=== PATIENT | female | born 1985 | race Caucasian/White ===

== ENCOUNTER 2017-09-24 19:21 | Emergency (ER) | payer OTHER ==
[~2017-09-24] VITALS: Ht 162.6 cm; Wt 81.2 kg
[~2017-09-24 19:21] MED LIST: AEROECLIPSE II1 EACH MC; ALBUTEROL2.5 MG/0.1 INH; ALBUTEROL2.5 MG/0.5 INH; BENTYL20 MG PO; BIRTH CONTROL PO; CIPRO500 MG PO; FLAGYL500 MG PO; HYDROCODONE-AP1 EAC6 PO; LEVOTHYROXIN0.025 MG PO; MEDROLDOSEPACK PO; METFORMIN HCL500 MG PO; NAPROSYN500 MG PO; NORCO 5-325 TA1 EAC1 PO; PHENERGAN 25 MG25 M1 PO; ZOFRAN 4 MG ORAL4 MG PO; ZOFRAN ODT4 MG DISSOLVE; ZOFRAN ODT4 MG PO
[2017-09-24 20:00] LABS: URINE BILIRUBIN NEGATIVE (Negative); URINE BLOOD 1+ (Negative); URINE COLOR YELLOW; URINE GLUCOSE-RANDOM NEGATIVE (Negative); URINE KETONES NEGATIVE (Negative); URINE LEUKOCYTES-REFLEX TRACE (Negative); URINE NITRITE-REFLEX NEGATIVE (Negative); URINE PROTEIN NEGATIVE (Negative); URINE SPECIFIC GRAVITY >= 1.030 (1.005-1.030); URINE UROBILINOGEN 0.2 E.U./dl (0.2-1.0)
[2017-09-24 20:02] LABS: URINE CLARITY HAZY
[2017-09-24 20:20] LABS: SQUAMOUS >10 Many /LPF (0-3)
[2017-09-24 20:21] LABS: ABSOLUTE LYMPHOCYTES 3.1 thou/uL (0.8-5.3); ABSOLUTE MONOCYTES 0.8 thou/uL (0.0-1.2); ABSOLUTE NEUTROPHILS 6.7 thou/uL (1.6-8.1); BASOPHILS 0.4 %; EOSINOPHILS 0.4 %; HEMATOCRIT 39.5 % (37.0-47.0); HEMOGLOBIN 13.3 gm/dL (12.0-15.0); LYMPHOCYTES 29.3 %; MCH 28.3 pg (26.0-34.0); MCHC 33.7 g/dL (28.0-37.0); MONOCYTES 7.1 %; MPV 9.1 fl. (7.2-11.1); NUCLEATED RBCS 0 /100WBC; PLATELET COUNT* 289 thou/uL (150-400); POLYS 62.8 %; RDW-CV 13.5 % (10.5-14.5); WBC 10.7 thou/uL (4.0-11.0)
[2017-09-24 20:21] LABS: CALCIUM OXALATE 0-3 Few /LPF (None Seen); CASTS None Seen /LPF (None Seen); MUCUS 0-3 Light strn/LPF (None Seen); URINE RBC 0-2 Rare /HPF (0-2); URINE WBC-REFLEX 0-5 Rare /HPF (0-5)
[2017-09-24 20:31] LABS: CALCIUM 9.5 mg/dL (8.5-10.1); CREATININE 0.9 mg/dL (0.6-1.3); POTASSIUM 3.3 mmol/L (3.5-5.1)
[2017-09-24 20:35] LABS: ALBUMIN 3.6 g/dL (3.4-5.0); TOTAL BILIRUBIN 0.2 mg/dL (<0.1-1.0); TOTAL PROTEIN 7.7 g/dL (6.4-8.2)
[2017-09-24] MEDS ORDERED: ZOFRAN ODT4 MG PO (22:26)
[2017-09-24] MEDS ORDERED: HYDROCODONE-AP1 EAC6 PO (22:26)
[2017-09-24] MEDS ORDERED: TORADOL 10 MG T10 MG PO (22:30)
[2017-09-24 22:45] VITALS: BP 118/72
== END 2017-09-24 22:45 | disposition home or self-care (01) ==
LOC: M.ERS 19:21
PROVIDERS: Nurse Practitioner Family
DX: R10.31 Right lower quadrant pain (principal); F10.99 Alcohol use, unspecified with unspecified alcohol-induced disorder; E03.9 Hypothyroidism, unspecified; J45.909 Unspecified asthma, uncomplicated; Z88.2 Allergy status to sulfonamides; Z90.49 Acquired absence of other specified parts of digestive tract

== ENCOUNTER 2017-09-28 14:40 | Inpatient (IN) | payer OTHER ==
[~2017-09-28] VITALS: Ht 162.6 cm; Wt 81.2 kg
--- NOTE | ~2017-09-28 | PROC ---
[facility] [address] [place] [address] PROCEDURE REPORT Name: TK MENSAH Room: [address] IN M.R.#: [id number] Admission: 09/28/17 Attend Phys: Debbi Foley MD Discharge: 10/01/17 Date of : 85 Report #: [id number] THIS REPORT FOR: //name// For GI report, please see Provation report in Perceptive 7 content. By: [id number] Records Staff YULIYA /COLLETTE
[~2017-09-28 14:40] MED LIST changes: +TORADOL 10 MG T10 MG PO
[2017-09-28 14:50] VITALS: BP 137/95
[2017-09-28] MEDS ORDERED: MOBIC15 MG PO (14:57)
[2017-09-28 15:37] LABS: URINE BILIRUBIN NEGATIVE (Negative); URINE BLOOD 1+ (Negative); URINE CLARITY CLEAR; URINE COLOR YELLOW; URINE GLUCOSE-RANDOM NEGATIVE (Negative); URINE KETONES NEGATIVE (Negative); URINE LEUKOCYTES-REFLEX NEGATIVE (Negative); URINE NITRITE-REFLEX NEGATIVE (Negative); URINE PROTEIN NEGATIVE (Negative); URINE SPECIFIC GRAVITY <= 1.005 (1.005-1.030); URINE UROBILINOGEN 0.2 E.U./dl (0.2-1.0)
[2017-09-28 15:38] LABS: ABSOLUTE BASOPHILS 0.1 thou/uL (0.0-0.2); ABSOLUTE EOSINOPHILS 0.1 thou/uL (0.0-0.7); ABSOLUTE MONOCYTES 0.8 thou/uL (0.0-1.2); ABSOLUTE NEUTROPHILS 7.3 thou/uL (1.6-8.1); BASOPHILS 0.5 %; HEMATOCRIT 39.8 % (37.0-47.0); HEMOGLOBIN 13.4 gm/dL (12.0-15.0); LYMPHOCYTES 26.8 %; MCH 28.5 pg (26.0-34.0); MCHC 33.6 g/dL (28.0-37.0); MCV 84.8 fL (80.0-100.0); MONOCYTES 6.7 %; MPV 9.5 fl. (7.2-11.1); NUCLEATED RBCS 0 /100WBC; PLATELET COUNT* 331 thou/uL (150-400); RBC 4.69 mil/uL (4.20-5.00); RDW-CV 13.5 % (10.5-14.5); WBC 11.3 thou/uL (4.0-11.0)
[2017-09-28 15:48] LABS: CRYSTALS None Seen /LPF (None Seen); MUCUS None Seen strn/LPF (None Seen); SQUAMOUS >10 Many /LPF (0-3)
[2017-09-28 15:49] LABS: CASTS None Seen /LPF (None Seen); URINE RBC 0-2 Rare /HPF (0-2); URINE WBC-REFLEX 0-5 Rare /HPF (0-5)
[2017-09-28 15:49] LABS: CALCIUM 8.7 mg/dL (8.5-10.1); CREATININE 0.9 mg/dL (0.6-1.3); POTASSIUM 3.2 mmol/L (3.5-5.1)
[2017-09-28 15:50] LABS: ALBUMIN 3.9 g/dL (3.4-5.0); TOTAL BILIRUBIN 0.2 mg/dL (<0.1-1.0); TOTAL PROTEIN 8.2 g/dL (6.4-8.2)
[2017-09-28 16:30] VITALS: BP 128/90; BP 131/92
[2017-09-28 20:30] VITALS: BP 120/70
[2017-09-29 00:04] VITALS: BP 108/61
[2017-09-29 04:02] LABS: HEMATOCRIT 31.7 % (37.0-47.0); MCHC 33.9 g/dL (28.0-37.0); MCV 85.4 fL (80.0-100.0); MPV 9.6 fl. (7.2-11.1); RBC 3.71 mil/uL (4.20-5.00); RDW-CV 13.5 % (10.5-14.5); WBC 7.8 thou/uL (4.0-11.0)
[2017-09-29 04:05] LABS: HEMOGLOBIN 10.8 gm/dL (12.0-15.0)
[2017-09-29 04:34] LABS: ALBUMIN 2.8 g/dL (3.4-5.0); CALCIUM 7.9 mg/dL (8.5-10.1); CREATININE 0.8 mg/dL (0.6-1.3); TOTAL BILIRUBIN 0.3 mg/dL (<0.1-1.0); TOTAL PROTEIN 5.7 g/dL (6.4-8.2)
[2017-09-29 08:15] VITALS: BP 119/79
[2017-09-29 09:21] VITALS: BP 108/61
[2017-09-29 16:00] VITALS: BP 113/71
[2017-09-29 21:45] VITALS: BP 121/75
[2017-09-30 08:00] VITALS: BP 115/70
[2017-09-30 15:30] VITALS: BP 113/73
[2017-09-30 20:00] VITALS: BP 116/76
[2017-10-01 00:33] VITALS: BP 116/74
[2017-10-01 08:08] VITALS: BP 125/82
[2017-10-01] MEDS ORDERED: PANTOPRAZOLE SO40 M1 PO (08:46)
[2017-10-01] MEDS ORDERED: HYDROCODON-ACE1 EAC7 PO (08:46)
[2017-10-01] MEDS ORDERED: SCOPOLAMINE1 EACH TRANSDERM (08:46)
[2017-10-01] MEDS ORDERED: COLESTID1 GM PO (08:46)
[2017-10-01] MEDS ORDERED: ZOFRAN ODT4 MG PO (08:47)
[2017-10-01 10:58] VITALS: BP 125/82
[2017-10-01 11:03] VITALS: BP 125/82
[2017-10-01] MEDS ORDERED: LEVAQUIN 250 M250 MG PO (11:10)
[2017-10-01 11:26] VITALS: BP 125/82
--- NOTE | 2017-10-02 11:21 | S ---
[place] [address] SURGICAL PATH RPT PROCEDURE Name: RODRICKALEXA R Room: [address] IN M.R.#: [id number] Admission: 09/28/17 Date of : 85 Discharge: 10/01/17 Report #: [id number] Path Case #: [id number] PATHOLOGY REPORT COLLECTION DATE: 09/29/2017 RECEIVED DATE: 10/01/2017 SUBMITTING PHYS: Dr. Fidelina Genao OTHER PHYS: Dr. Debbi Desir SPECIMEN(S) RECEIVED: A.Duodenal biopsy * * * * * * * * * * * * FINAL DIAGNOSIS: Duodenum, "duodenal biopsy": - No obvious diagnostic changes. - There is no evidence of acute cryptitis, granulomas, adenomatous change, sprue-like changes or malignancy. (SHA:mgr; 10/02/2017) PATHOLOGIST: Lv Carson M.D. REPORT ELECTRONICALLY SIGNED BY: Lv Carson M.D. DATE/TIME: 10/02/2017 11:20 * * * * * * * * * * * * GROSS PATHOLOGY: Received in formalin labeled "Alexa Thomas duodenal BX" and consists of 2 juárez mucosal biopsies each averaging 0.3 cm. There are entirely submitted as A1. (MARGO; 10/01/2017) CLINICAL HISTORY: Rule out mild duodenitis INITIAL CPT CODE(S): A; 32470 Professional services performed by [facility] at [facility], [address] [place] [address]. Technical services performed by [facility] at [address] [place] [address], [address], [place], [place] [address]. [facility] [address] [address] [place] [address] SURGICAL PATH RPT PROCEDURE Name: ALEXA THOMAS Room: [address] IN M.R.#: [id number] Admission: 09/28/17 Date of : 85 Discharge: 10/01/17 Report #: [id number] Path Case #: [id number] [place] [address] PHONE: [phone] DIRECTOR: Shade Chandra M.D. * * * END OF REPORT * * *
--- NOTE | 2017-10-15 15:05 | CON ---
[address] [address] CONSULTATION Name: TK MENSAH Room: [address] IN M.R.#: [id number] Admission: 09/28/17 Attend Phys: Debbi Foley MD Discharge: 10/01/17 Date of : 85 Report #: [id number] THIS REPORT FOR: //name// CC: Dr. Debbi Desir MD DATE OF SERVICE: 09/29/2017 REQUESTING PHYSICIAN: Dr. Debbi Foley. HISTORY OF PRESENT ILLNESS: This is a 31-year-old female with history of gallbladder disease, status post cholecystectomy 2 years ago. The patient reports that she has had intermittent right upper quadrant pain, which mimics her gallbladder disease. She has had a CT and MRCP, which were negative for any evidence of choledocholithiasis or intra or extrahepatic ductal dilatation. The patient also complains of nausea, but no vomiting. The pain is mainly in the right upper quadrant pain and radiates to the back. She denies any lower GI symptoms as she denies diarrhea, constipation, hematochezia or melena. PAST MEDICAL HISTORY: Significant for history of gallbladder disease, status post cholecystectomy 2 years ago, bronchitis, asthma, heart murmur, history of arthroscopy, ex lap, shoulder surgery, and hyperthyroidism: ALLERGIES: Significant to SULFA. MEDICATIONS: Please refer to hospital MAR. SOCIAL HISTORY: The patient is a nurse. She denies tobacco or alcohol use. FAMILY HISTORY: Noncontributory. PHYSICAL EXAMINATION: VITAL SIGNS: Reveals blood pressure of 108/61, respiration 18, pulse 84, temperature 97. LUNGS: Clear. CARDIOVASCULAR: Regular. ABDOMEN: Soft, tender to palpation in the right upper quadrant. Bowel sounds are positive. NEUROLOGIC: The patient is alert, oriented x 3. LABORATORY DATA: Reveal sodium of 145, potassium 4.0, BUN is 7, creatinine 0.8, glucose 78, AST is 12, ALT 28, alkaline phosphatase 42, calcium 7.9. Lipase 105. WBC is 7.8 with hemoglobin of 10.8 and [place] [id number] CONSULTATION Name: TK MENSAH Maria Luisa Room: [address] IN [facility].#: [id number] Admission: 09/28/17 Attend Phys: Debbi Foley MD Discharge: 10/01/17 Date of : 85 Report #: [id number] IMAGING: CT and MRCP were performed and as discussed above. ASSESSMENT AND PLAN: The patient with right upper quadrant pain and dyspepsia, who has had gallbladder surgery 2 years ago. The MRCP is negative for any evidence of choledocholithiasis. 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 <ELECTRONICALLY SIGNED> By: Fidelina Genao MD 10/15/17 1505 [id number] Genao MD /juan manuel
== END 2017-10-01 11:28 | disposition home or self-care (01) | DRG 384 ==
LOC: M.ERS 14:40 → M.TBA-ER 15:25 → M.ORTHSURG 15:25
PROVIDERS: Physician Assistant; ADMIT Internal Medicine
PROC: 0DB98ZX Excision of Duodenum, Via Natural or Artificial Opening Endoscopic, Diagnostic (ICD-10-PCS; principal; 2017-09-29)
DX: K26.9 Duodenal ulcer, unspecified as acute or chronic, without hemorrhage or perforation (principal); E03.9 Hypothyroidism, unspecified; J45.909 Unspecified asthma, uncomplicated; E21.3 Hyperparathyroidism, unspecified; E28.2 Polycystic ovarian syndrome; K44.9 Diaphragmatic hernia without obstruction or gangrene; Z90.49 Acquired absence of other specified parts of digestive tract; Z79.899 Other long term (current) drug therapy; Z88.2 Allergy status to sulfonamides

== ENCOUNTER → 2017-10-29 | Outpatient (CLI) | payer OTHER ==
[~2017-10-29] MED LIST changes: +COLESTID1 GM PO; +HYDROCODON-ACE1 EAC7 PO; +LEVAQUIN 250 M250 MG PO; +MOBIC15 MG PO; +PANTOPRAZOLE SO40 M1 PO; +SCOPOLAMINE1 EACH TRANSDERM; +SYNTHROID25 MC1 PO
[2017-10-29 16:31] LABS: MCH 28.4 pg (26.0-34.0); MCHC 33.2 g/dL (28.0-37.0); MCV 85.3 fL (80.0-100.0); MPV 9.6 fl. (7.2-11.1); RBC 4.92 mil/uL (4.20-5.00); RDW-CV 13.7 % (10.5-14.5); WBC 9.7 thou/uL (4.0-11.0)
[2017-10-29 16:52] LABS: ALBUMIN 3.8 g/dL (3.4-5.0); CALCIUM 9.2 mg/dL (8.5-10.1); CREATININE 0.9 mg/dL (0.6-1.3); POTASSIUM 3.8 mmol/L (3.5-5.1); TOTAL BILIRUBIN 0.2 mg/dL (<0.1-1.0); TOTAL PROTEIN 7.8 g/dL (6.4-8.2)
== END ==
LOC: M.LAB 16:14
PROVIDERS: Family Medicine
DX: K83.8 Other specified diseases of biliary tract (principal); R94.5 Abnormal results of liver function studies

== ENCOUNTER 2017-11-06 14:22 | Inpatient (IN) | payer OTHER ==
[~2017-11-06] VITALS: Ht 162.6 cm; Wt 78.5 kg
--- NOTE | ~2017-11-06 | PROC ---
[address] [address] PROCEDURE REPORT Name: TK MENSAH Room: [address] IN M.R.#: [id number] Admission: 11/06/17 Attend Phys: Trinh Nixon Discharge: Date of : 85 Report #: [id number] THIS REPORT FOR: //name// See Provation report in Perceptive 7 content. By: [id number] Records Staff [facility] /COLLETTE
[~2017-11-06 14:22] MED LIST changes: -SYNTHROID25 MC1 PO
[2017-11-06 14:36] VITALS: BP 136/89
[2017-11-06 14:42] LABS: URINE BILIRUBIN NEGATIVE (Negative); URINE BLOOD TRACE (Negative); URINE CLARITY CLEAR; URINE COLOR YELLOW; URINE GLUCOSE-RANDOM NEGATIVE (Negative); URINE KETONES NEGATIVE (Negative); URINE LEUKOCYTES-REFLEX NEGATIVE (Negative); URINE NITRITE-REFLEX NEGATIVE (Negative); URINE PROTEIN TRACE (Negative); URINE UROBILINOGEN 0.2 E.U./dl (0.2-1.0)
[2017-11-06 14:51] LABS: ABSOLUTE LYMPHOCYTES 2.6 thou/uL (0.8-5.3); ABSOLUTE MONOCYTES 0.7 thou/uL (0.0-1.2); ABSOLUTE NEUTROPHILS 7.4 thou/uL (1.6-8.1); BASOPHILS 0.2 %; EOSINOPHILS 0.3 %; HEMATOCRIT 40.6 % (37.0-47.0); HEMOGLOBIN 13.5 gm/dL (12.0-15.0); LYMPHOCYTES 24.4 %; MCH 28.1 pg (26.0-34.0); MCHC 33.2 g/dL (28.0-37.0); MCV 84.7 fL (80.0-100.0); MONOCYTES 6.2 %; MPV 9.4 fl. (7.2-11.1); NUCLEATED RBCS 0 /100WBC; PLATELET COUNT* 303 thou/uL (150-400); POLYS 68.9 %; RBC 4.79 mil/uL (4.20-5.00); RDW-CV 13.5 % (10.5-14.5); WBC 10.7 thou/uL (4.0-11.0)
[2017-11-06 15:01] LABS: CALCIUM 9.3 mg/dL (8.5-10.1); POTASSIUM 3.4 mmol/L (3.5-5.1)
[2017-11-06] MEDS ORDERED: SYNTHROID25 MC1 PO (15:02)
[2017-11-06 15:05] LABS: ALBUMIN 3.7 g/dL (3.4-5.0); TOTAL BILIRUBIN 0.3 mg/dL (<0.1-1.0); TOTAL PROTEIN 7.9 g/dL (6.4-8.2)
[2017-11-06 15:48] VITALS: BP 123/85
[2017-11-06 16:09] VITALS: BP 118/62
--- NOTE | 2017-11-06 16:18 | NUR ---
PATIENT ADMITTED FROM ER TO ROOM 105. ALERT AND ORIENTED. REPORTS RUQ PAIN X 6 WEEKS. PATIENT STATES SHE IS BEING CARED FOR BY DR. HICKEY BUT HAS NOT BEEN ABLE TO FOLLOW UP WITH HIM SINCE LAST ADMISSION. PATIENT STATES DIET IS POOR AND SHE IS ONLY TOLERATING SOFTER FOODS. IVF INFUSING ORDERED. ADMISSION HISTORY AND ASSESSMENT CHARTED. DR. HICKEY CONSULTED. ORIENTED TO ROOM AND BED CONTROLS. MOM AT BEDSIDE. WILL CONTINUE TO MONITOR.
[2017-11-06 20:00] VITALS: BP 137/88
[2017-11-07 00:44] VITALS: BP 112/69
--- NOTE | 2017-11-07 04:42 | NUR ---
PATIENT REMAINS ALERT AND ORIENTED X4. VITAL SIGNS STABLE ON ROOM AIR. REPORTS PAIN IN RIGHT UPPER QUADRANT. ALSO REPORTS NAUSEA THROUGHOUT SHIFT. PAIN AND NAUSEA MANAGED WITH IV MEDICATION PER ORDER. IV PATENT IN THE RIGHT AC INFUSING AT 100 ML/HR. MAINTAINED NPO STATUS STARTING AT MIDNIGHT. TRANSFERS AD OLEG TO THE RESTROOM. HOURLY ROUNDING COMPLETE. CALL LIGHT WITHIN REACH. NURSING WILL CONTINUE TO MONITOR.
[2017-11-07 05:13] LABS: HEMATOCRIT 31.5 % (37.0-47.0); MCH 28.7 pg (26.0-34.0); MCHC 34.1 g/dL (28.0-37.0); MCV 84.4 fL (80.0-100.0); MPV 9.9 fl. (7.2-11.1); RBC 3.73 mil/uL (4.20-5.00); RDW-CV 13.7 % (10.5-14.5); WBC 7.3 thou/uL (4.0-11.0)
[2017-11-07 05:37] LABS: HEMOGLOBIN 10.7 gm/dL (12.0-15.0)
[2017-11-07 05:44] LABS: ALBUMIN 2.8 g/dL (3.4-5.0); CALCIUM 8.4 mg/dL (8.5-10.1); CREATININE 0.9 mg/dL (0.6-1.3); POTASSIUM 4.2 mmol/L (3.5-5.1); TOTAL BILIRUBIN 0.2 mg/dL (<0.1-1.0); TOTAL PROTEIN 5.8 g/dL (6.4-8.2)
[2017-11-07 07:51] VITALS: BP 112/76
[2017-11-07 10:57] VITALS: BP 113/70
[2017-11-07 15:06] VITALS: BP 110/68
--- NOTE | 2017-11-07 18:08 | NUR ---
ASSUMED CARE OF PATIENT AFTER MORNING REPORT. ALERT AND ORIENTED X4. ASSESSMENT COMPLETED AND CHARTED. VSS ON ROOM AIR. PATIENTS PAIN AND NAUSEA HAVE BEEN MANAGED WITH MEDICATION. FLUIDS INFUSING ORDERED. PATIENT IS SCHEDULED FOR AN MRCP TOMORROW AND WILL BE NPO AFTER MIDNIGHT. RESTING COMFORTABLY IN BED AT THIS TIME. HOURLY ROUNDS HAVE BEEN MAINTAINED. CALL LIGHT IS WITHIN REACH. NURSING WILL CONTINUE TO MONITOR.
[2017-11-07 19:30] VITALS: BP 108/65
[2017-11-08 04:34] LABS: CALCIUM 8.3 mg/dL (8.5-10.1); CREATININE 0.9 mg/dL (0.6-1.3); POTASSIUM 3.5 mmol/L (3.5-5.1)
--- NOTE | 2017-11-08 04:41 | NUR ---
PATIENT REMAINS ALERT AND ORIENTED X4 THROUGHOUT SHIFT. PAIN AND NAUSEA MANAGED WITH IV MEDICATION PER ORDERS. IV PATENT IN RIGHT AC INFUSING AT 100 ML/HR. VITAL SIGNS STABLE ON ROOM AIR. TRANSFERRING AD OLEG TO THE RESTROOM. MAINTAINED NPO STATUS SINCE MIDNIGHT FOR PROCEDURE TODAY. HOURLY ROUNDING COMPLETE. CALL LIGHT WITHIN REACH. NURSING WILL CONTINUE TO MONITOR.
[2017-11-08 07:15] VITALS: BP 107/71
[2017-11-08 10:14] VITALS: BP 107/71
[2017-11-08 11:50] VITALS: BP 136/89
--- NOTE | 2017-11-08 16:12 | NUR ---
SPOKE WITH PT.IN ROOM. 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 IS INDEPENDENT. SHOULD NOT HAVE ANY DISCHARGE NEEDS.
--- NOTE | 2017-11-08 17:26 | NUR ---
ASSUMED CARE OF PATIENT AFTER MORNING REPORT. ALERT AND ORIENTED X4. ASSESSMENT COMPLETED AND CHARTED. VSS ON ROOM AIR. PATIENT HAS HAD NO NAUSEA THIS SHIFT. PAIN HAS BEEN MANAGED WITH PAIN MEDICATION. [facility] AT 1130 FOR AN MRCP AND RETURNED AT 1515. NO COMPLAINTS OF PAIN OR NAUSEA AFTER RETURNING TO THE UNIT. FLUIDS INFUSED ORDERED. HOURLY ROUNDS MAINTAINED WHILE PATIENT HAS BEEN ON UNIT. CALL LIGHT IS WITHIN REACH. NURSING WILL CONTINUE TO MONITOR.
[2017-11-08 20:00] VITALS: BP 124/85
[2017-11-09 04:28] LABS: ABSOLUTE LYMPHOCYTES 1.4 thou/uL (0.8-5.3); ABSOLUTE MONOCYTES 0.4 thou/uL (0.0-1.2); ABSOLUTE NEUTROPHILS 6.4 thou/uL (1.6-8.1); HEMATOCRIT 33.4 % (37.0-47.0); HEMOGLOBIN 11.3 gm/dL (12.0-15.0); LYMPHOCYTES 16.5 %; MCH 28.7 pg (26.0-34.0); MCHC 33.9 g/dL (28.0-37.0); MCV 84.7 fL (80.0-100.0); MONOCYTES 4.9 %; MPV 10.5 fl. (7.2-11.1); NUCLEATED RBCS 0 /100WBC; PLATELET COUNT* 225 thou/uL (150-400); POLYS 78.6 %; RBC 3.94 mil/uL (4.20-5.00); RDW-CV 13.6 % (10.5-14.5); WBC 8.2 thou/uL (4.0-11.0)
[2017-11-09 04:51] LABS: CALCIUM 8.9 mg/dL (8.5-10.1); CREATININE 0.8 mg/dL (0.6-1.3); POTASSIUM 4.4 mmol/L (3.5-5.1); TOTAL BILIRUBIN 0.2 mg/dL (<0.1-1.0); TOTAL PROTEIN 6.4 g/dL (6.4-8.2)
--- NOTE | 2017-11-09 07:40 | NUR ---
PT SLEPT ON AND OFF THIS SHIFT. ASSESSMENT DOCUMENTED. MEDS GIVEN PER E-SEP. PAIN MEDS GIVEN PER E-SEP WITH RELIEF. IV PATENT, FLUIDS INFUSING. NAUSEA MEDS GIVEN PER E-MAR. WILL CONTINUE WITH PLAN OF CARE.
[2017-11-09 08:00] VITALS: BP 117/68
[2017-11-09 16:06] VITALS: BP 122/74
--- NOTE | 2017-11-09 18:15 | NUR ---
PT UP IN ROOM WITH STEADY GAIT. IVF INFUSING. PT TOLERATING PO WELL. PAIN WELL CONTROLLED.
[2017-11-09 20:00] VITALS: BP 116/74
[2017-11-09 23:39] VITALS: BP 103/54
[2017-11-10 04:02] VITALS: BP 101/61
[2017-11-10 04:48] LABS: ALBUMIN 2.7 g/dL (3.4-5.0); CALCIUM 8.2 mg/dL (8.5-10.1); CREATININE 0.9 mg/dL (0.6-1.3); MAGNESIUM 1.7 mg/dL (1.8-2.4); POTASSIUM 3.8 mmol/L (3.5-5.1); TOTAL BILIRUBIN 0.2 mg/dL (<0.1-1.0); TOTAL PROTEIN 5.5 g/dL (6.4-8.2)
--- NOTE | 2017-11-10 06:13 | NUR ---
Alert and oriented x 4. She is up inpendently in her room. She is voiding adequately. She did have fentanyl x 2 for abdominal pain and this am she had oxy IR but she did request zofran for in case of nausea. She has had no nausea all of this shift. She is passing gas. She has slept well. Magnesium is low this am. Following electrolyte protocol.
[2017-11-10 08:15] VITALS: BP 110/74
[2017-11-10 12:09] VITALS: BP 110/74
--- NOTE | 2017-11-10 15:26 | NUR ---
PATIENT DISCHARGED TO HOME WITH SPOUSE. IV DC'D. TOLERATING REG DIET. OXY IR GIVEN X 1 FOR PAIN WITH GOOD RELIEF NOTED. VERBALIZES UNDERSTANDING OF PAPERWORK, NO SCRIPTS NOTED. PATIENT AMBULATED OUT WITH THIS NURSE AND FAMILY WITH ALL BELONGINGS.
--- NOTE | 2017-11-12 15:01 | CON ---
[facility] [address] [place] [address] CONSULTATION Name: TK MENSAH Room: [address] IN M.R.#: [id number] Admission: 11/06/17 Attend Phys: Trinh Nixon Discharge: 11/10/17 Date of : 85 Report #: [id number] THIS REPORT FOR: //name// CC: AMY Walker DICTATED BY: Smitha Guy [facility] DATE OF SERVICE: 11/07/2017 PRIMARY CARE PHYSICIAN: Thang Walker MD REQUESTING PHYSICIAN: Lino Walker, DO Please note at the time of this dictation, the patient was seen and physically examined by myself. REASON FOR CONSULTATION: Right upper quadrant pain, ongoing. HISTORY OF PRESENT ILLNESS: This is a 32-year-old female who has been having ongoing intractable right upper quadrant pain for the last 6 weeks, which started shortly after having her laparoscopic cholecystectomy done and has been very persistent. The patient underwent an EGD on 09/29 that showed a small hiatal hernia, normal esophagus. She had a few little duodenal erosions, but otherwise were negative. She was started on Protonix 40 mg daily and some Bentyl t.i.d. and was recommended, given that she still was having ongoing pain, to get an EUS, which she did over at with on 10/26. We do not have a report in her chart as of yet in our office; however, we are obtaining it. 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 The patient therefore talked to her PCP. Due to her insurance, PCP called our office to find out what exactly he needed to do a referral for, and she was instructed that she needed a colorectal surgeon. The patient went and saw Dr. Sin yesterday who wondered why she was there. The patient was very frustrated, one because of her insurance and this ongoing pain, she has lost 15 pounds since all of this has started and is only able to eat applesauce and very soft bland foods. He recommended for her to get the procedure done as quickly as possible as to come over to the hospital and to be admitted, which she took his advice and did. Currently, the patient is still having pain. She still rates it at 7-8 and it does not let up, ongoing nausea, but not really having any vomiting at this time. ALLERGIES: SULFA. MEDICATIONS: From home include colestipol, hydrocodone, pantoprazole and scopolamine patch. She is also on metformin, [place]th[place] [address] CONSULTATION Name: TK MENSAH Room: [address] IN M.R.#: [id number] Admission: 11/06/17 Attend Phys: Trinh Nixon Discharge: 11/10/17 Date of : 85 Report #: [id number] PAST MEDICAL HISTORY: Hypothyroidism. PCOS. Asthma. PAST SURGICAL HISTORY: Exploratory lap band in 2005, arthroscopic surgery in 2008, shoulder repair in 2007 and a laparoscopic cholecystectomy this year. FAMILY HISTORY: Noncontributory. SOCIAL HISTORY: Alcohol socially on special occasions. Denies any tobacco or illegal drug use. REVIEW OF SYSTEMS: Twelve-point review of systems is essentially negative except what is mentioned in the HPI. PHYSICAL EXAMINATION: VITAL SIGNS: Temperature 36.9, pulse 79, respirations 18, blood pressure 112/76. HEART: Regular rate and rhythm. LUNGS: Clear. ABDOMEN: Soft, positive bowel sounds in all 4 quadrants, with diffuse tenderness noted mainly in the upper quadrants bilaterally. LABORATORY DATA: Hemoglobin on admission was 13.5, she is down to 10.7, likely due to dehydration. Hematocrit 31.5, white count is 7.3, platelets 215. Sodium 141, potassium 4.2, chloride 108, CO2 of 24, BUN is 3, creatinine 0.9, GFR 73 and glucose is 78. Her LFTs are normal and lipase is 88. IMPRESSION: 1. 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 2. Nausea and vomiting, ongoing. 3. Weight loss 15 pounds since September. 4. Duodenal erosion history. PLAN: 1. ERCP tomorrow with Dr. Pearson with sphincterotomy. 2. We will try some Levsin. 3. Further recommendations to be made once the procedure has been performed. Thank you for allowing us to participate in this patient's care. Please do not hesitate to call with any questions in regard to this consult. ADDENDUM The patient with history of intermittent abdominal pain, which most of the time is postprandial. She reports that she has nausea and if she eats a big meal, she will have sharp pain in her right upper quadrant. She describes it as this [address] [place] [address] CONSULTATION Name: TK MENSAH Room: [address] [facility] IN M.R.#: [id number] Admission: 11/06/17 Attend Phys: Trinh Nixon Discharge: 11/10/17 Date of : 85 Report #: [id number] is gallbladder pain all over again. She has history of laparoscopic cholecystectomy. Since her last hospitalization, we had sent her to [facility] for endoscopic ultrasound as all her other tests were unrevealing. We are still waiting for the US report, but the patient reports that Dr. Espinoza at had told her that she has 3 mm common bile duct and there is no biliary stone or notable stricture. 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 Note that her liver enzymes and bile ducts are normal. We will go ahead and perform ERCP with sphincterotomy and hoping that the patient will benefit from this. I also told the patient that usually in young woman with normal duct size, the chance of post-ERCP pancreatitis is very high, but we will try to hydrate her well and give her indomethacin suppository to decrease this chance. The patient is agreeable with this plan. <ELECTRONICALLY SIGNED> By: Fidelina Genao MD 11/12/17 1501 1143 [id number] Genao MD /nt
--- NOTE | 2017-11-12 15:01 | CON ---
[address] [address] CONSULTATION Name: TK MENSAH Room: [address] IN M.R.#: [id number] Admission: 11/06/17 Attend Phys: Trinh Nixon Discharge: 11/10/17 Date of : 85 Report #: [id number] THIS REPORT FOR: //name// CC: Aaron Walker DATE OF SERVICE: 11/07/2017 ADDENDUM REQUESTING PHYSICIAN: Lino Walker DO Consult # is [id number] The patient with history of intermittent abdominal pain, which most of the time is postprandial. She reports that she has nausea and if she eats a big meal, she will have sharp pain in her right upper quadrant. She describes it as this is gallbladder pain all over again. She has history of laparoscopic cholecystectomy. Since her last hospitalization, we had sent her to [facility] for endoscopic ultrasound as all her other tests were unrevealing. We are still waiting for the US report, but the patient reports that Dr. Espinoza at had told her that she has 3 mm common bile duct and there is no biliary stone or notable stricture. 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 Note that her liver enzymes and bile ducts are normal. We will go ahead and perform ERCP with sphincterotomy and hoping that the patient will benefit from this. I also told the patient that usually in young woman with normal duct size, the chance of post-ERCP pancreatitis is very high, but we will try to hydrate her well and give her indomethacin suppository to decrease this chance. The patient is agreeable with this plan. <ELECTRONICALLY SIGNED> By: Fidelina Genao MD 11/12/17 1501 1411 [id number] Genao MD /nt
== END 2017-11-10 15:31 | disposition home or self-care (01) | DRG 446 ==
LOC: M.ERS 14:22 → M.ORTHSURG 15:17 → M.TBA-ER 15:17 → M.ORTHSURG 15:36 → M.3W 11-08 19:30
PROVIDERS: Internal Medicine Gastroenterology; Nurse Practitioner Psychiatric/Mental Health; ADMIT Internal Medicine
PROC: 0F798DZ Dilation of Common Bile Duct with Intraluminal Device, Via Natural or Artificial Opening Endoscopic (ICD-10-PCS; principal; 2017-11-08)
DX: K83.8 Other specified diseases of biliary tract (principal); Z88.2 Allergy status to sulfonamides; E03.9 Hypothyroidism, unspecified; J45.909 Unspecified asthma, uncomplicated; E87.6 Hypokalemia; R63.4 Abnormal weight loss; Z79.899 Other long term (current) drug therapy; Z90.49 Acquired absence of other specified parts of digestive tract; Z68.29 Body mass index [BMI] 29.0-29.9, adult

== ENCOUNTER → 2017-11-14 | Outpatient (CLI) | payer OTHER ==
[~2017-11-14] MED LIST changes: +SYNTHROID25 MC1 PO
[2017-11-14 10:11] LABS: ABSOLUTE EOSINOPHILS 0.2 thou/uL (0.0-0.7); ABSOLUTE LYMPHOCYTES 1.8 thou/uL (0.8-5.3); ABSOLUTE MONOCYTES 0.5 thou/uL (0.0-1.2); ABSOLUTE NEUTROPHILS 5.8 thou/uL (1.6-8.1); BASOPHILS 0.5 %; EOSINOPHILS 1.9 %; HEMATOCRIT 41.4 % (37.0-47.0); HEMOGLOBIN 13.7 gm/dL (12.0-15.0); LYMPHOCYTES 21.5 %; MCH 28.2 pg (26.0-34.0); MCV 85.3 fL (80.0-100.0); MONOCYTES 6.1 %; NUCLEATED RBCS 0 /100WBC; PLATELET COUNT* 288 thou/uL (150-400); RBC 4.85 mil/uL (4.20-5.00); RDW-CV 13.9 % (10.5-14.5); WBC 8.3 thou/uL (4.0-11.0)
[2017-11-14 10:21] LABS: ALBUMIN 3.8 g/dL (3.4-5.0); CALCIUM 9.2 mg/dL (8.5-10.1); CREATININE 1.1 mg/dL (0.6-1.3); POTASSIUM 3.9 mmol/L (3.5-5.1); TOTAL BILIRUBIN 0.4 mg/dL (<0.1-1.0); TOTAL PROTEIN 7.6 g/dL (6.4-8.2)
== END ==
LOC: M.RAD 09:00 → M.LAB 09:03 → M.RAD 09:03
PROVIDERS: Internal Medicine Gastroenterology
DX: K83.4 Spasm of sphincter of Oddi (principal)

== ENCOUNTER → 2017-11-22 | Day surgery (SDC) | payer OTHER ==
--- NOTE | ~2017-11-22 | PROC ---
[address] [address] PROCEDURE REPORT Name: TK MENSAH Room: [facility]#: [id number] Admission: 11/22/17 Attend Phys: Santiago Pearson DO Discharge: Date of : 85 Report #: [id number] THIS REPORT FOR: //name// Please see the Provation report in Perceptive 7 content. (GI) By: [id number] Records Staff YULIYA /COLLETTE
== END | disposition home or self-care (01) ==
LOC: M.SUR 08:28
DX: T18.3XXA Foreign body in small intestine, initial encounter (principal); K44.9 Diaphragmatic hernia without obstruction or gangrene; J45.909 Unspecified asthma, uncomplicated; E03.9 Hypothyroidism, unspecified; Z98.890 Other specified postprocedural states; Z79.899 Other long term (current) drug therapy; Y83.8 Other surgical procedures as the cause of abnormal reaction of the patient, or of later complication, without mention of misadventure at the time of the procedure

== ENCOUNTER → 2017-12-06 | Outpatient (CLI) | payer OTHER ==
[2017-12-06 09:31] LABS: HEMATOCRIT 37.4 % (37.0-47.0); HEMOGLOBIN 12.6 gm/dL (12.0-15.0); MCH 28.6 pg (26.0-34.0); MCHC 33.6 g/dL (28.0-37.0); MPV 9.8 fl. (7.2-11.1); RBC 4.4 mil/uL (4.20-5.00); RDW-CV 13.7 % (10.5-14.5); WBC 8.2 thou/uL (4.0-11.0)
[2017-12-06 09:43] LABS: ALBUMIN 3.7 g/dL (3.4-5.0); ALKALINE PHOSPHATASE 61 U/L (46-116); ANION GAP 10 mmol/L (7-16); BUN 9 mg/dL (7-18); CALCIUM 9.1 mg/dL (8.5-10.1); CHLORIDE 104 mmol/L (98-107); CHOLESTEROL 131 mg/dL (<200); CO2 26 mmol/L (21-32); CREATININE 0.9 mg/dL (0.6-1.3); GLUCOSE 89 mg/dL (70-99); HDL CHOLESTEROL 44 mg/dL (>40); LDL CHOLESTEROL 71 mg/dL (<100); LIPASE 130 U/L (73-393); MAGNESIUM 1.8 mg/dL (1.8-2.4); PHOSPHORUS* 3.1 mg/dL (2.5-4.9); POTASSIUM 4.2 mmol/L (3.5-5.1); SGOT 26 U/L (15-37); SGPT 45 U/L (30-65); SODIUM 140 mmol/L (136-145); TOTAL BILIRUBIN 0.4 mg/dL (<0.1-1.0); TOTAL PROTEIN 7.8 g/dL (6.4-8.2); TRIGLYCERIDE 81 mg/dL (<150); VLDL 16 mg/dL (<40)
[2017-12-06 09:44] LABS: SERUM ASSESSMENT Clear
[2017-12-07 03:12] LABS: GLYCOHEMOGLOBIN (HGB A1C) 4.8 % (4.8-5.6)
== END ==
LOC: M.LAB 09:04
PROVIDERS: Family Medicine
DX: E03.9 Hypothyroidism, unspecified (principal)